=== PATIENT | female | born 1965 | race Caucasian/White ===

== ENCOUNTER 2016-10-25 18:05 | Emergency (ER) | payer OTHER ==
[~2016-10-25 18:05] MED LIST: CYCL10TA PO; LINZ290C PO; OMEP40CA2 PO; SUCR1TA PO
[2016-10-25] MEDS ORDERED: AZITHROMYCIN 250 MG TAB As Ordered ONE (21:36)
--- NOTE | 2016-10-25 21:47 | EDDOCDS ---
Physician Documentation [facility] Name: Cally Valiente Age: 50 yrs Sex: Female : 1965 Arrival Date: 10/25/2016 Time: 18:05 Bed I9 / 22 Private MD: Ryland Ivey M Disposition: 10/25/16 21:36 Discharged to Home/Self Care. Impression: Acute upper respiratory infection, unspecified. - Condition is Stable. - Discharge Instructions: Upper Respiratory Infection, Adult. - Prescriptions for Zithromax 250 mg Oral Tablet - take 1 tablet by ORAL route once daily start tomorrow; 4 tablet. benzonatate 200 mg Oral Capsule - take 1 capsule by ORAL route 3 times per day As needed; 30 capsule. - Medication Reconciliation, Local Pharmacy Hours form. - Follow up: Ryland Ivey; When: Call to arrange an appointment; Reason: Recheck today's complaints, Continuance of care. - Problem is an ongoing problem. - Symptoms are unchanged. - Notes: Use Ibuprofen and Tylenol, as needed, for pain or fever >101.5 Keep hydrated Continue to use OTC cold meds to help with symptom control Return to the ED for worsening symptoms Historical: - Allergies: No known drug Allergies; - Home Meds: 1. Linzess 290 mcg oral cap 2. omprezole 20 mg - PMHx: ulcers; - PSHx: lung biopsy; Bladder suspension; - Social history: Smoking status: Patient uses tobacco products, light tobacco smoker. No barriers to communication noted, The patient speaks fluent Swedish, Speaks appropriately for age. - Family history: No immediate family members are acutely ill. - : The pt / caregiver states he / she is not on anticoagulants. Home medication list is obtained from the patient. - Exposure Risk Screening:: None identified. Vital Signs: 10/25 18:06 BP 136 / 83; Pulse 101; Resp 18; Temp 96.9(O); Pulse Ox 96% on R/A; Weight 79.38 kg / elp 175 lbs (R); Height 5 ft. 5 in. (165.10 cm) (R); 21:25 BP 140 / 63; Pulse 95; Resp 18; Pulse Ox 96% ; Pain 0/10; mlc 18:06 Body Mass Index 29.12 (79.38 kg, 165.10 cm) elp MDM: 20:52 Chest, 2 View (pa\E\lat) Ordered. EDMS 21:28 Financial registration complete. [email or web address] 21:29 [facility] Payment Agreement was scanned into [employer] and attached to record. ks16 21:31 azithromycin 500 mg PO once ordered. le Administered Medications: 21:39 Drug: azithromycin 500 mg [azithromycin 250 mg tablet (2 tabs)] Route: PO; mlc Signatures: Dispatcher [employer] EDMS Patrizia Anderson FNP PLANT OPERATIONS WORKERCecile Ashton RN RN hs1 Jazmín Hair RN RN mlc Michelle Grullon, Reg Reg ks16 The chart was reviewed and I authenticate all verbal orders and agree with the evaluation and treatment provided.Attachments: 21:29 [facility] Payment Agreement ks16 MTDD
--- NOTE | 2016-10-25 21:47 | EDDOCDS ---
Nurse's Notes [facility] Name: Cally Valiente Age: 50 yrs Sex: Female : 1965 Arrival Date: 10/25/2016 Time: 18:05 Bed I9 / 22 Private MD: Ryland Ivey M Diagnosis: Acute upper respiratory infection, unspecified Presentation: 10/25 18:23 Presenting complaint: Patient states: cough sinuses for 3 weeks. Patient states Sanjuana had hs1 all I cant take. Adult Sepsis Screening: The patient does not have new or worsening altered mentation. Patient's respiratory rate is less than 22. Systolic blood pressure is greater than 100. Patient has a qSOFA score of 0- Negative Sepsis Screen. Suicide/Homicide risk assessment- the patient denies having any suicidal and/or homicidal ideations and does not present with any other emotional, behavioral or mental health complaints. Status: Patient is not a tire servicer or dependent. Transition of care: patient was not received from another setting of care. 18:23 Acuity: LEN Level 4 hs1 18:23 Method Of Arrival: Walkin/Carried/Asstd hs1 Triage Assessment: 18:25 General: Appears in no apparent distress, Behavior is appropriate for age, cooperative. hs1 Pain: Location: chest Pain currently is 6 out of 10 on a pain scale. Quality of pain is described as only when coughing. HIV screening NA for this visit Offered previously. Historical: - Allergies: No known drug Allergies; - Home Meds: 1. Linzess 290 mcg oral cap 2. omprezole 20 mg - PMHx: ulcers; - PSHx: lung biopsy; Bladder suspension; - Social history: Smoking status: Patient uses tobacco products, light tobacco smoker. No barriers to communication noted, The patient speaks fluent Rwandan, Speaks appropriately for age. - Family history: No immediate family members are acutely ill. - : The pt / caregiver states he / she is not on anticoagulants. Home medication list is obtained from the patient. - Exposure Risk Screening:: None identified. Screenin:25 Screening information is obtained from the patient. Fall risk: No risks identified. mlc Assistance ADL's: requires no assistance with activities of daily living. Abuse/DV Screen: The patient / caregiver reports he/she is: not in a situation that causes fear, pain or injury. Nutritional screening: No deficits noted. Advance Directives: There is no active DNR order. home support is adequate. Assessment: 21:25 General: Appears in no apparent distress, comfortable, Behavior is cooperative. Pain: mlc Denies pain. Neurological: Level of Consciousness is awake, alert, obeys commands, Oriented to person, place, time. Cardiovascular: Heart tones S1 S2 present. Respiratory: Airway is patent Respiratory effort is even, unlabored, Respiratory pattern is regular, Breath sounds are clear bilaterally. Respiratory: Reports cough that is productive. Derm: Skin is pink, warm & dry. 21:39 Reassessment: Patient appears in no apparent distress at this time. [place] [facility] [place]. 21:45 General: Appears in no apparent distress, comfortable, Behavior is cooperative. Pain: mlc Denies pain. Neurological: Level of Consciousness is awake, alert, Oriented to person, place, time. Respiratory: Airway is patent Respiratory effort is even, unlabored, Respiratory pattern is regular. Vital Signs: 18:06 BP 136 / 83; Pulse 101; Resp 18; Temp 96.9(O); Pulse Ox 96% on R/A; Weight 79.38 kg elp (R); Height 5 ft. 5 in. (165.10 cm) (R); 21:25 BP 140 / 63; Pulse 95; Resp 18; Pulse Ox 96% ; Pain 0/10; mlc 18:06 Body Mass Index 29.12 (79.38 kg, 165.10 cm) el Vitals: 18:06 Log In Time: October 25, 2016 at 18:04. elp ED Course: 18:05 Patient visited by Imani Alonso PCA. elp 18:05 Patient moved to Waiting elp 18:06 Ryland Ivey is Private Physician. elp 18:08 Patient moved to Pre RCE elp 18:24 Triage Initiated hs1 20:50 Patient moved to I9 / ttb 21:06 Patrizia Anderson FNP is [facility]. le 21:09 Patient visited by Patrizia Anderson FNP. le 21:09 Patient visited by Patrizia Anderson FNP. le 21:25 The patient / caregiver is instructed regarding the plan of care and ED course. mlc 21:26 Patient visited by Jazmín Hair RN. mlc 21:29 [facility] Payment Agreement was scanned into [employer] and attached to record. ks16 21:36 Ryland Ivey is Referral Physician. le 21:39 Patient visited by Jazmín Hair,VASQUEZ. mlc 21:45 No IV's were initiated during this patient's visit. No procedures done that require mlc assistance. Administered Medications: 21:39 Drug: azithromycin 500 mg [azithromycin 250 mg tablet (2 tabs)] Route: PO; mlc Order Results: There are currently no results for this order. Outcome: 21:36 Discharge ordered by Provider. le 21:45 Discharge Assessment: Patient awake, alert and oriented x 3. No cognitive and/or mlc functional deficits noted. Patient verbalized understanding of disposition instructions. patient administered narcotics - no. The following High Risk Discharge criteria are identified: None. Discharged to home ambulatory. Condition: stable. Discharge instructions given to patient, Instructed on discharge instructions, follow up and referral plans. medication usage, Demonstrated understanding of instructions, medications, Pt was receptive of discharge instructions/ teaching. Prescriptions given X 2. No special radiology studies were completed. Property sent home with patient. 21:46 [place] [facility] [place] Signatures: Patrizia Anderson, BURGLAR ALARM SUPERINTENDENT BURGLAR ALARM SUPERINTENDENT Cecile Houser RN RN hs1 Chen Krueger RN RN ttb Imani Alonso, MANAGING CONSULTANT MANAGING CONSULTANT elp Jazmín Hair RN RN [facility] Michelle Grullon, Reg Reg [email or web address] Corrections: (The following items were deleted from the chart) 18:08 18:06 Pulse 101bpm; Resp 18bpm; Pulse Ox 96% RA; Temp 96.9F Oral; 79.38 kg Reported; elp Height 5 ft. 5 in. Reported; BMI: 29.1; elp MTDD
--- NOTE | 2016-10-26 02:38 | REP ---
Clinical: Acute cough . Comparison: 06/12/2009 . Technique: PA and lateral. Findings: The mediastinum and cardiac silhouette are normal. The lung foster are clear and without acute consolidation, effusion, or pneumothorax. The skeletal structures are intact and normal. Impression: 1. No acute cardiopulmonary process. Signed by Ralph Walton MD 10/26/2016 02:29 A
--- NOTE | 2016-10-27 22:48 | EDDOCDS ---
Nurse's Notes [facility] Name: Cally Valiente Age: 50 yrs Sex: Female : 1965 Arrival Date: 10/25/2016 Time: 18:05 Bed I9 / 22 Private MD: Ryland Ivey M Diagnosis: Acute upper respiratory infection, unspecified Presentation: 10/25 18:23 Presenting complaint: Patient states: cough sinuses for 3 weeks. Patient states Sanjuana had hs1 all I cant take. Adult Sepsis Screening: The patient does not have new or worsening altered mentation. Patient's respiratory rate is less than 22. Systolic blood pressure is greater than 100. Patient has a qSOFA score of 0- Negative Sepsis Screen. Suicide/Homicide risk assessment- the patient denies having any suicidal and/or homicidal ideations and does not present with any other emotional, behavioral or mental health complaints. Status: Patient is not a it service technician or dependent. Transition of care: patient was not received from another setting of care. 18:23 Acuity: LEN Level 4 hs1 18:23 Method Of Arrival: Walkin/Carried/Asstd hs1 Triage Assessment: 18:25 General: Appears in no apparent distress, Behavior is appropriate for age, cooperative. hs1 Pain: Location: chest Pain currently is 6 out of 10 on a pain scale. Quality of pain is described as only when coughing. HIV screening NA for this visit Offered previously. Historical: - Allergies: No known drug Allergies; - Home Meds: 1. Linzess 290 mcg oral cap 2. omprezole 20 mg - PMHx: ulcers; - PSHx: lung biopsy; Bladder suspension; - Social history: Smoking status: Patient uses tobacco products, light tobacco smoker. No barriers to communication noted, The patient speaks fluent [place]inean, Speaks appropriately for age. - Family history: No immediate family members are acutely ill. - : The pt / caregiver states he / she is not on anticoagulants. Home medication list is obtained from the patient. - Exposure Risk Screening:: None identified. Screenin:25 Screening information is obtained from the patient. Fall risk: No risks identified. mlc Assistance ADL's: requires no assistance with activities of daily living. Abuse/DV Screen: The patient / caregiver reports he/she is: not in a situation that causes fear, pain or injury. Nutritional screening: No deficits noted. Advance Directives: There is no active DNR order. home support is adequate. Assessment: 21:25 General: Appears in no apparent distress, comfortable, Behavior is cooperative. Pain: mlc Denies pain. Neurological: Level of Consciousness is awake, alert, obeys commands, Oriented to person, place, time. Cardiovascular: Heart tones S1 S2 present. Respiratory: Airway is patent Respiratory effort is even, unlabored, Respiratory pattern is regular, Breath sounds are clear bilaterally. Respiratory: Reports cough that is productive. Derm: Skin is pink, warm & dry. 21:39 Reassessment: Patient appears in no apparent distress at this time. pt medicated per [facility] order. 21:45 General: Appears in no apparent distress, comfortable, Behavior is cooperative. Pain: mlc Denies pain. Neurological: Level of Consciousness is awake, alert, Oriented to person, place, time. Respiratory: Airway is patent Respiratory effort is even, unlabored, Respiratory pattern is regular. Vital Signs: 18:06 BP 136 / 83; Pulse 101; Resp 18; Temp 96.9(O); Pulse Ox 96% on R/A; Weight 79.38 kg elp (R); Height 5 ft. 5 in. (165.10 cm) (R); 21:25 BP 140 / 63; Pulse 95; Resp 18; Pulse Ox 96% ; Pain 0/10; mlc 18:06 Body Mass Index 29.12 (79.38 kg, 165.10 cm) el Vitals: 18:06 Log In Time: October 25, 2016 at 18:04. elp ED Course: 18:05 Patient visited by Imani Alonso PCA. elp 18:05 Patient moved to Waiting elp 18:06 Ryland Ivey is Private Physician. elp 18:08 Patient moved to Pre RCE elp 18:24 Triage Initiated hs1 20:50 Patient moved to I9 / ttb 21:06 Patrizia Anderson FNP is [facility]. le 21:09 Patient visited by Patrizia Anderson FNP. le 21:09 Patient visited by Patrizia Anderson FNP. le 21:25 The patient / caregiver is instructed regarding the plan of care and ED course. mlc 21:26 Patient visited by Jazmín Hair RN. [facility] 21:29 [facility] Payment Agreement was scanned into [employer] and attached to record. [email or web address] 21:36 Ryland Ivey is Referral Physician. le 21:39 Patient visited by Jazmín Hair RN. mlc 21:45 No IV's were initiated during this patient's visit. No procedures done that require mlc assistance. 10/26 02:39 Chest, 2 View (pa\E\lat) Returned. EDAK 09:42 T-Sheet-- Draft Copy was scanned into [employer] and attached to record. gb Administered Medications: 10/25 21:39 Drug: azithromycin 500 mg [azithromycin 250 mg tablet (2 tabs)] Route: PO; mlc Order Results: Radiology Order: Chest, 2 View (pa\E\lat) Test: Chest, 2 View (pa\E\lat) REASON FOR EXAMINATION: Cough; Clinical: Acute cough .; ; Comparison: 06/12/2009 .; ; Technique: PA and lateral.; ; Findings:; The mediastinum and cardiac silhouette are normal. The lung foster are clear and; without acute consolidation, effusion, or pneumothorax. The skeletal structures; are intact and normal.; ; Impression:; 1. No acute cardiopulmonary process.; ; ; Signed by; Ralph Walton MD 10/26/2016 02:29 A; Outcome: 21:36 Discharge ordered by Provider. le 21:45 Discharge Assessment: Patient awake, alert and oriented x 3. No cognitive and/or mlc functional deficits noted. Patient verbalized understanding of disposition instructions. patient administered narcotics - no. The following High Risk Discharge criteria are identified: None. Discharged to home ambulatory. Condition: stable. Discharge instructions given to patient, Instructed on discharge instructions, follow up and referral plans. medication usage, Demonstrated understanding of instructions, medications, Pt was receptive of discharge instructions/ teaching. Prescriptions given X 2. No special radiology studies were completed. Property sent home with patient. 21:46 Patient left the ED. [facility] Signatures: Dispatcher [employer] EDAK Yun Sebastian, Reg Reg gb Patrizia Anderson, TSA SCREENER TSA SCREENER Cecile Houser RN RN hs1 Chen Krueger RN RN ttb Gavin, Imani, EARRING MAKER EARRING MAKER elp Jazmín Hair,VASQUEZ OVALLE [facility] Michelle Grullon, Reg Reg ks16 Corrections: (The following items were deleted from the chart) 18:08 18:06 Pulse 101bpm; Resp 18bpm; Pulse Ox 96% RA; Temp 96.9F Oral; 79.38 kg Reported; elp Height 5 ft. 5 in. Reported; BMI: 29.1; elp Chart Complete MTDD
--- NOTE | 2016-10-27 22:48 | EDDOCDS ---
Physician Documentation [facility] Name: Cally Valiente Age: 50 yrs Sex: Female : 1965 Arrival Date: 10/25/2016 Time: 18:05 Bed I9 / 22 Private MD: Ryland Ivey M Disposition: 10/25/16 21:36 Discharged to Home/Self Care. Impression: Acute upper respiratory infection, unspecified. - Condition is Stable. - Discharge Instructions: Upper Respiratory Infection, Adult. - Prescriptions for Zithromax 250 mg Oral Tablet - take 1 tablet by ORAL route once daily start tomorrow; 4 tablet. benzonatate 200 mg Oral Capsule - take 1 capsule by ORAL route 3 times per day As needed; 30 capsule. - Medication Reconciliation, Local Pharmacy Hours form. - Follow up: Ryland Ivey; When: Call to arrange an appointment; Reason: Recheck today's complaints, Continuance of care. - Problem is an ongoing problem. - Symptoms are unchanged. - Notes: Use Ibuprofen and Tylenol, as needed, for pain or fever >101.5 Keep hydrated Continue to use OTC cold meds to help with symptom control Return to the ED for worsening symptoms Historical: - Allergies: No known drug Allergies; - Home Meds: 1. Linzess 290 mcg oral cap 2. omprezole 20 mg - PMHx: ulcers; - PSHx: lung biopsy; Bladder suspension; - Social history: Smoking status: Patient uses tobacco products, light tobacco smoker. No barriers to communication noted, The patient speaks fluent Slovak, Speaks appropriately for age. - Family history: No immediate family members are acutely ill. - : The pt / caregiver states he / she is not on anticoagulants. Home medication list is obtained from the patient. - Exposure Risk Screening:: None identified. Vital Signs: 10/25 18:06 BP 136 / 83; Pulse 101; Resp 18; Temp 96.9(O); Pulse Ox 96% on R/A; Weight 79.38 kg / elp 175 lbs (R); Height 5 ft. 5 in. (165.10 cm) (R); 21:25 BP 140 / 63; Pulse 95; Resp 18; Pulse Ox 96% ; Pain 0/10; mlc 18:06 Body Mass Index 29.12 (79.38 kg, 165.10 cm) elp MDM: 20:52 Chest, 2 View (pa\E\lat) Ordered. EDMS 21:28 Financial registration complete. [email or web address] 21:29 [facility] Payment Agreement was scanned into [employer] and attached to record. ks16 21:31 azithromycin 500 mg PO once ordered. aleah 10/26 09:42 T-Sheet-- Draft Copy was scanned into [employer] and attached to record. gb Administered Medications: 10/25 21:39 Drug: azithromycin 500 mg [azithromycin 250 mg tablet (2 tabs)] Route: PO; mlc Signatures: Dispatcher [employer] EDMS Yun Sebastian, Reg Reg gb Patrizia Anderson, PACKING AND SHIPPING CLERK PACKING AND SHIPPING CLERK Cecile Houser RN RN hs1 Jazmín Hair RN RN [facility] Michelle Grullon, Reg Reg ks16 The chart was reviewed and I authenticate all verbal orders and agree with the evaluation and treatment provided.Attachments: 21:29 [facility] Payment Agreement [email or web address] 10/26 09:42 T-Sheet-- Draft Copy gb Chart Complete MTDD
--- NOTE | 2016-10-27 22:48 | EDDOCDS ---
Physician Documentation [facility] Name: Cally Valiente Age: 50 yrs Sex: Female : 1965 Arrival Date: 10/25/2016 Time: 18:05 Bed I9 / 22 Private MD: Ryland Ivey M Disposition: 10/25/16 21:36 Discharged to Home/Self Care. Impression: Acute upper respiratory infection, unspecified. - Condition is Stable. - Discharge Instructions: Upper Respiratory Infection, Adult. - Prescriptions for Zithromax 250 mg Oral Tablet - take 1 tablet by ORAL route once daily start tomorrow; 4 tablet. benzonatate 200 mg Oral Capsule - take 1 capsule by ORAL route 3 times per day As needed; 30 capsule. - Medication Reconciliation, Local Pharmacy Hours form. - Follow up: Ryland Ivey; When: Call to arrange an appointment; Reason: Recheck today's complaints, Continuance of care. - Problem is an ongoing problem. - Symptoms are unchanged. - Notes: Use Ibuprofen and Tylenol, as needed, for pain or fever >101.5 Keep hydrated Continue to use OTC cold meds to help with symptom control Return to the ED for worsening symptoms Historical: - Allergies: No known drug Allergies; - Home Meds: 1. Linzess 290 mcg oral cap 2. omprezole 20 mg - PMHx: ulcers; - PSHx: lung biopsy; Bladder suspension; - Social history: Smoking status: Patient uses tobacco products, light tobacco smoker. No barriers to communication noted, The patient speaks fluent Yi, Speaks appropriately for age. - Family history: No immediate family members are acutely ill. - : The pt / caregiver states he / she is not on anticoagulants. Home medication list is obtained from the patient. - Exposure Risk Screening:: None identified. Vital Signs: 10/25 18:06 BP 136 / 83; Pulse 101; Resp 18; Temp 96.9(O); Pulse Ox 96% on R/A; Weight 79.38 kg / elp 175 lbs (R); Height 5 ft. 5 in. (165.10 cm) (R); 21:25 BP 140 / 63; Pulse 95; Resp 18; Pulse Ox 96% ; Pain 0/10; mlc 18:06 Body Mass Index 29.12 (79.38 kg, 165.10 cm) elp MDM: 20:52 Chest, 2 View (pa\E\lat) Ordered. EDMS 21:28 Financial registration complete. [email or web address] 21:29 [facility] Payment Agreement was scanned into [employer] and attached to record. ks16 21:31 azithromycin 500 mg PO once ordered. aleah 10/26 09:42 T-Sheet-- Draft Copy was scanned into [employer] and attached to record. gb Administered Medications: 10/25 21:39 Drug: azithromycin 500 mg [azithromycin 250 mg tablet (2 tabs)] Route: PO; mlc Signatures: Dispatcher [employer] EDMS Yun Sebastian, Reg Reg gb Patrizia Anderson, STATIONARY ENGINEER APPRENTICE STATIONARY ENGINEER APPRENTICE Cecile Houser RN RN hs1 Jazmín Hair RN RN [facility] Michelle Grullon, Reg Reg ks16 The chart was reviewed and I authenticate all verbal orders and agree with the evaluation and treatment provided.Attachments: 21:29 [facility] Payment Agreement [email or web address] 10/26 09:42 T-Sheet-- Draft Copy gb Chart Complete MTDD
== END 2016-10-25 21:46 | disposition home or self-care (01) ==
LOC: M ED 18:05
DX: J06.9 Acute upper respiratory infection, unspecified (principal); F17.210 Nicotine dependence, cigarettes, uncomplicated; Z79.899 Other long term (current) drug therapy

== ENCOUNTER 2016-11-20 14:48 | Emergency (ER) | payer OTHER ==
[~2016-11-20] VITALS: Ht 165.1 cm; Wt 81.6 kg
[2016-11-20 17:02] VITALS: BP 124/78
[2016-11-20] MEDS ORDERED: FLUTICASONE PROP 0.05% NASAL SPRAY 16 GM (FLONASE) SCH (21:00)
== END 2016-11-20 17:06 | disposition home or self-care (01) ==
LOC: M ED 16:20
DX: J32.9 Chronic sinusitis, unspecified (principal); Z79.899 Other long term (current) drug therapy; F17.210 Nicotine dependence, cigarettes, uncomplicated

== ENCOUNTER → 2017-01-18 | Outpatient (REF) | payer OTHER ==
[2017-01-18 11:11] LABS: FREE T4 0.88 NG/DL (0.76-1.46)
== END ==
LOC: M LABDRAW1 10:35
PROVIDERS: ATTEND Physician Assistant Medical
DX: M62.838 Other muscle spasm (principal)

== ENCOUNTER → 2017-01-30 | Outpatient (CLI) | payer OTHER ==
--- NOTE | 2017-01-30 10:24 | REP ---
CT maxillofacial without contrast: 01/30/2017. Clinical history: Chronic pansinusitis. Axial thin-section images with soft tissue and bone window settings and coronal reconstructions were provided. Visualized mastoids and temporal bones grossly intact. The skull base intact. Zygomatic arches, orbital struts, medial orbital sanchez and the orbital floors intact. Septum is midline. Some minor mucosal thickening in the anterior sanchez of the right and left sphenoid sinuses. Frontal sinuses were clear. Maxillary sinuses show some stenosis of the ostium of the OMC on the right with minor mucosal thickening at the ostium of the left OMC. There is minimal mucosal thickening floor of the right maxillary antrum. The left OMC shows no ostial and/or infundibular stenosis. Hiatus semilunaris intact on both sides. No indio bullosa of the middle turbinates. No air-fluid levels. Impression: 1. Minor mucosal thickening anterior sphenoid sinuses and at the ostium of the OMC on the right. The there is no mucosal thickening of floor of the right maxillary antrum. Sphenoid, maxillary, ethmoid and frontal sinuses are without air fluid levels or opacification. No septal deviation. Signed by Jon Bhatia MD 01/30/2017 01:30 P
== END ==
LOC: M RAD 09:05
PROVIDERS: ATTEND Otolaryngology
DX: J32.4 Chronic pansinusitis (principal)

== ENCOUNTER → 2017-02-16 | Outpatient (REF) | payer OTHER ==
[2017-02-16 13:25] LABS: FREE T4 0.98 NG/DL (0.76-1.46)
== END ==
LOC: M SFHCPLAZ 09:40
PROVIDERS: ATTEND Physician Assistant Medical
DX: R53.83 Other fatigue (principal)

== ENCOUNTER → 2017-03-17 | Outpatient (CLI) | payer OTHER ==
[~2017-03-17] MED LIST changes: +AUGM875T28 PO; +FLUT1SPR2; +IBUP-1022 PO; +METH1TAB40; +OMEP40CA2; +SUCR1TAB56; +ZYRT10TA2 PO
--- NOTE | 2017-03-17 16:21 | REP ---
Clinical: Left lower extremity pain status post ablation. Technique: Jimenez scale and color Doppler evaluation using linear high frequency transducer. Findings: Ultrasound examination of the left lower extremity deep venous structures from the common femoral vein to the popliteal vein demonstrates normal compressibility flow and wave patterns in response to respiration and augmentation. There is no evidence for deep venous thrombosis. Thrombus through the greater saphenous vein is consistent with prior ablation. Impression: No evidence for deep venous thrombosis. Signed by Ralph Walton MD 03/17/2017 11:06 A
== END ==
LOC: M RAD 10:25
PROVIDERS: ATTEND Surgery
DX: I83.812 Varicose veins of left lower extremity with pain (principal)

== ENCOUNTER 2017-06-05 07:03 | Emergency (ER) | payer OTHER ==
[~2017-06-05] VITALS: Ht 165.1 cm; Wt 86.4 kg
[~2017-06-05 07:03] MED LIST changes: -AUGM875T28 PO; -FLUT1SPR2; -IBUP-1022 PO; -METH1TAB40; -OMEP40CA2; -SUCR1TAB56; -ZYRT10TA2 PO
[2017-06-05] MEDS ORDERED: OMEP40CA2 (07:17)
[2017-06-05] MEDS ORDERED: METH1TAB40 (07:17)
[2017-06-05] MEDS ORDERED: SUCR1TAB56 (07:17)
[2017-06-05] MEDS ORDERED: FLUT1SPR2 (07:17)
[2017-06-05 07:21] VITALS: BP 128/91
[2017-06-05] MEDS ORDERED: ZYRT10TA2 PO (07:51)
[2017-06-05] MEDS ORDERED: AUGM875T28 PO (07:51)
== END 2017-06-05 07:59 | disposition home or self-care (01) ==
LOC: M ED 07:03
DX: J31.0 Chronic rhinitis (principal); R51 Headache; K21.9 Gastro-esophageal reflux disease without esophagitis; Z79.899 Other long term (current) drug therapy; F17.210 Nicotine dependence, cigarettes, uncomplicated

== ENCOUNTER 2017-06-13 20:44 | Emergency (ER) | payer OTHER ==
[~2017-06-13] VITALS: Ht 165.1 cm; Wt 77.3 kg
[~2017-06-13 20:44] MED LIST changes: +AUGM875T28 PO; +FLUT1SPR2; +METH1TAB40; +OMEP40CA2; +SUCR1TAB56; +ZYRT10TA2 PO
[2017-06-13] MEDS ORDERED: IBUP-1022 PO (23:18)
[2017-06-13 23:32] VITALS: BP 114/75
--- NOTE | 2017-06-14 00:39 | REP ---
Clinical: Trauma. Fall. Technique: AP, lateral, sunrise and bilateral oblique views of right knee. Findings: Anterior and prepatellar soft tissue swelling is appreciated. Small effusion cannot be excluded. No acute fracture or dislocation. [place] view demonstrates marginal osteophytes along the patella suggesting mild degenerative change. Impression: Swelling. No fracture. Mild degenerative change. Signed by Ralph Walton MD 06/14/2017 12:30 A
== END 2017-06-13 23:34 | disposition home or self-care (01) ==
LOC: M ED 20:44
DX: S80.01XA Contusion of right knee, initial encounter (principal); W01.198A Fall on same level from slipping, tripping and stumbling with subsequent striking against other object, initial encounter; Y92.019 Unspecified place in single-family (private) house as the place of occurrence of the external cause; Y93.01 Activity, walking, marching and hiking; Y99.8 Other external cause status; F17.210 Nicotine dependence, cigarettes, uncomplicated; Z79.2 Long term (current) use of antibiotics; Z79.899 Other long term (current) drug therapy; Z79.51 Long term (current) use of inhaled steroids

== ENCOUNTER 2018-08-20 21:46 | Emergency (ER) | payer OTHER ==
[2018-08-21] MEDS: CYCLOBENZAPRINE 10 MG TAB PO (00:25)
[2018-08-21] MEDS: ACETAMINOPHEN 325 MG TAB PO (00:25)
== END 2018-08-21 00:28 | disposition home or self-care (01) ==
LOC: M ED 08-21 00:28
DX: S70.02XA Contusion of left hip, initial encounter (principal); S76.012A Strain of muscle, fascia and tendon of left hip, initial encounter; W01.0XXA Fall on same level from slipping, tripping and stumbling without subsequent striking against object, initial encounter; Y92.89 Other specified places as the place of occurrence of the external cause; Y99.0 Civilian activity done for income or pay; K21.9 Gastro-esophageal reflux disease without esophagitis; Z79.899 Other long term (current) drug therapy
CPT/HCPCS: 73502

== ENCOUNTER → 2018-11-30 | Outpatient (REF) | payer OTHER ==
[~2018-11-30] MED LIST changes: +CELE1CAP9; +IBUP-1022 PO; +ZYRT10CA5 PO; -ZYRT10TA2 PO
[2018-11-30 13:49] LABS: HEMATOCRIT 44.7 % (36.0-47.0); HEMOGLOBIN 14.6 g/dl (12.0-15.5); MEAN CORPUSCULAR HEMOGLOBIN 29.6 pg (27.0-33.0); MEAN CORPUSCULAR HGB CONC 32.7 g/dl (32.0-36.5); MEAN CORPUSCULAR VOLUME 90.5 fl (80.0-96.0); PLATELET COUNT, AUTOMATED 197 10^3/uL (150-450); RED BLOOD COUNT 4.94 10^6/uL (4.00-5.40)
== END ==
LOC: M LABDRAW1 13:14
PROVIDERS: ATTEND Physician Assistant Medical
DX: R10.13 Epigastric pain (principal)

== ENCOUNTER 2018-12-20 10:26 | Day surgery (SDC) | payer OTHER ==
[~2018-12-20] VITALS: Ht 165.1 cm; Wt 93.2 kg
[~2018-12-20 10:26] MED LIST changes: +CARA1TAB6 PO; +LIDOCAINE 2% INJ 100 MG/5 ML SDV (FOR ANES.) As Ordered ONE
[2018-12-20] MEDS ORDERED: PROPOFOL 200 MG/20 ML VIAL As Ordered ONE (11:56)
[2018-12-20] MEDS: NS 1,000 ML IV ONE (11:57)
[2018-12-20] MEDS ORDERED: fentaNYL 100 MCG/2 ML INJECTION (J3010) As Ordered ONE (12:31)
--- NOTE | 2018-12-20 13:07 | ROOR ---
Patient Name: Cally Valiente Procedure Date: 12/20/2018 12:51 PM Date of : 1965 Age: 53 Room: [facility] Gender: Female Note Status: Finalized Procedure: Upper GI endoscopy Indications: Epigastric abdominal pain Providers: Benji DE LA CRUZ MD Referring MD: Andree Reyes NP Requesting Provider: Medicines: Monitored Anesthesia Care Complications: No immediate complications. Procedure: Pre-Anesthesia Assessment: - The heart rate, respiratory rate, oxygen saturations, blood pressure, adequacy of pulmonary ventilation, and response to care were monitored throughout the procedure. The Endoscope was introduced through the mouth, and advanced to the second part of duodenum. The upper GI endoscopy was accomplished without difficulty. The patient tolerated the procedure well. Findings: The examined esophagus was normal. Localized nodular mucosa was found in the gastric antrum. Biopsies were taken with a cold forceps for histology. The exam of the stomach was otherwise normal. (large volume) The examined duodenum was normal. Impression: - Normal esophagus. - Small nodular spot at site of previous ulcer. Suspect small scar/fibrotic tissue. There is no recurrence of ulcer- Biopsied. - Stomach is otherwise normal. - Normal examined duodenum. Recommendation: - Continue present medications. - Telephone endoscopist for pathology results in 2 weeks. - Observe patient's clinical course. Benji De La Cruz MD Benji DE LA CRUZ MD 12/20/2018 1:07:06 PM Electronically signed by Benji DE LA CRUZ MD Number of Addenda: 0 Note Initiated On: 12/20/2018 12:51 PM Estimated Blood Loss: Estimated blood loss: none.
--- NOTE | 2018-12-20 13:33 | ROOR ---
Patient Name: Cally Valiente Procedure Date: 12/20/2018 12:51 PM Date of : 1965 Age: 53 Room: [facility] Gender: Female Note Status: Finalized Procedure: Colonoscopy Indications: High risk colon cancer surveillance: Personal history of colonic polyps, Last colonoscopy: July 2015 Providers: Benji DE LA CRUZ MD Referring MD: Andree Reyes NP Requesting Provider: Medicines: Monitored Anesthesia Care Complications: No immediate complications. Procedure: Pre-Anesthesia Assessment: - The heart rate, respiratory rate, oxygen saturations, blood pressure, adequacy of pulmonary ventilation, and response to care were monitored throughout the procedure. The Colonoscope was introduced through the anus and advanced to the cecum, identified by appendiceal orifice and ileocecal valve. The colonoscopy was performed with difficulty due to unsatisfactory bowel prep. Successful completion of the procedure was aided by lavage. The patient tolerated the procedure well. The quality of the bowel preparation was fair and 20 percent obscured. Findings: The perianal and digital rectal examinations were normal. Three sessile polyps were found in the descending colon and splenic flexure. The polyps were 4 to 5 mm in size. These polyps were removed with a cold snare. Resection and retrieval were complete. The exam was otherwise without abnormality on direct and retroflexion views. Impression: - Preparation of the colon was fair. - Three 4 to 5 mm polyps in the descending colon and at the splenic flexure, removed with a cold snare. Resected and retrieved. - The examination was otherwise normal on direct and retroflexion views. Recommendation: - Repeat colonoscopy in 2 years because the bowel preparation was suboptimal. - You had MOM/Suprep colon prep. You will need additional colon prep for your next colonoscopy. Benji De La Cruz MD Benji DE LA CRUZ MD 12/20/2018 1:33:36 PM Electronically signed by Benji DE LA CRUZ MD Number of Addenda: 0 Note Initiated On: 12/20/2018 12:51 PM Estimated Blood Loss: Estimated blood loss: none.
[2018-12-20 13:50] VITALS: BP 128/91
[2018-12-21] MEDS ORDERED: KETO10TAB PO (22:18)
[2018-12-21] MEDS ORDERED: CYCL10TA PO (22:18)
== END 2018-12-20 14:03 | disposition home or self-care (01) ==
LOC: M OPP 10:26
PROVIDERS: ATTEND Internal Medicine Gastroenterology
DX: D12.3 Benign neoplasm of transverse colon (principal); D12.4 Benign neoplasm of descending colon; Z86.010 Personal history of colon polyps; R10.13 Epigastric pain; K29.60 Other gastritis without bleeding
CPT/HCPCS: 43239; 45385; 88305; J3010

== ENCOUNTER 2018-12-21 20:51 | Emergency (ER) | payer OTHER ==
[~2018-12-21] VITALS: Ht 165.1 cm; Wt 82.7 kg
[~2018-12-21 20:51] MED LIST changes: -LIDOCAINE 2% INJ 100 MG/5 ML SDV (FOR ANES.) As Ordered ONE
[2018-12-21] MEDS ORDERED: KETOROLAC 60 MG/2 ML VIAL (J1885) IM ONE (21:45)
[2018-12-21] MEDS ORDERED: KETO10TAB PO (22:18)
[2018-12-21] MEDS ORDERED: CYCL10TA PO (22:18)
--- NOTE | 2018-12-21 22:23 | REP ---
Clinical: Abdominal pain with recent procedure. Technique: Upright view of the abdomen to include in the lower chest with supine view of the abdomen and pelvis. Findings: Mild/moderate fecal stasis is suggested. There is no evidence for bowel obstruction or perforation. Mild hepatomegaly cannot be excluded. Skeletal structures are intact. Impression: Mild/moderate fecal stasis. No evidence for bowel obstruction or perforation. Electronically Signed by Ralph Walton MD 12/21/2018 10:14 P
[2018-12-21 22:25] VITALS: BP 133/93
== END 2018-12-21 22:26 | disposition home or self-care (01) ==
LOC: M ED 20:51
DX: S46.912A Strain of unspecified muscle, fascia and tendon at shoulder and upper arm level, left arm, initial encounter (principal)
CPT/HCPCS: 74019; 96372; 99283; J1885

== ENCOUNTER → 2019-09-28 | Outpatient (REF) | payer OTHER ==
[~2019-09-28] MED LIST changes: +KETO10TAB PO; -OMEP40CA2; -OMEP40CA2 PO; +OMEP40CA97; +OMEP40CA97 PO
== END ==
LOC: M LAB REF 17:42
PROVIDERS: ATTEND Physician Assistant
DX: R30.0 Dysuria (principal)

== ENCOUNTER → 2020-07-06 | Outpatient (REF) | payer OTHER ==
[~2020-07-06] MED LIST changes: +CYCL-707 PO; -CYCL10TA PO
== END ==
LOC: M LAB REF 12:51
PROVIDERS: ATTEND Nurse Practitioner Adult Health
DX: I10 Essential (primary) hypertension (principal); R35.0 Frequency of micturition; R35.1 Nocturia

== ENCOUNTER → 2020-10-02 | Outpatient (CLI) | payer SELFPAY | LOC: M LABSMTC 11:49 | PROVIDERS: ATTEND Pediatrics | DX: Z20.822 Contact with and (suspected) exposure to COVID-19 (principal) ==

== ENCOUNTER → 2021-09-30 | Outpatient (CLI) | payer OTHER ==
[~2021-09-30] MED LIST changes: +METH-1164; -METH1TAB40; +OMEP40CA4; +OMEP40CA4 PO; -OMEP40CA97; -OMEP40CA97 PO
[2021-09-30 14:09] LABS: BASO % 0.5 % (0.0-1.0); EOS # 0.2 10^3/uL (0.0-0.5); EOS % 2.5 % (0.0-3.0); HEMATOCRIT 47.1 % (36.0-47.0); HEMOGLOBIN 15.6 g/dl (12.0-15.5); LYMPH # 3.3 10^3/uL (1.5-5.0); LYMPH % 42.3 % (24.0-44.0); MEAN CORPUSCULAR HEMOGLOBIN 29.9 pg (27.0-33.0); MEAN CORPUSCULAR HGB CONC 33.1 g/dl (32.0-36.5); MEAN CORPUSCULAR VOLUME 90.4 fl (80.0-96.0); MONO # 0.6 10^3/uL (0.0-0.8); MONO % 7.7 % (2.0-8.0); NEUTROPHILS # 3.6 10^3/uL (1.5-8.5); NEUTROPHILS % 46.7 % (36.0-66.0); PLATELET COUNT, AUTOMATED 197 10^3/uL (150-450); RED BLOOD COUNT 5.21 10^6/uL (4.00-5.40); WHITE BLOOD COUNT 7.7 10^3/uL (4.0-10.0)
[2021-09-30 14:46] LABS: C REACTIVE PROTEIN QUANTITATIV 1.23 MG/DL (0.00-0.30); RHEUMATOID FACTOR QUANT < 10.0 IU/ML (<15.0); TOTAL PROTEIN 7.1 GM/DL (6.4-8.2); URIC ACID 5.2 MG/DL (2.6-6.0)
[2021-09-30 15:08] LABS: ERYTHROCYTE SEDIMENTATION RATE 6 mm/hr (0-30)
== END ==
LOC: M PLALAB 09:56
PROVIDERS: ATTEND Orthopaedic Surgery
DX: M17.11 Unilateral primary osteoarthritis, right knee (principal)

== ENCOUNTER → 2021-12-30 | Outpatient (CLI) | payer OTHER | LOC: M WHC 10:07 | PROVIDERS: ATTEND Nurse Practitioner Adult Health | DX: Z12.31 Encounter for screening mammogram for malignant neoplasm of breast (principal) ==

== ENCOUNTER → 2022-02-07 | Outpatient (REF) | payer OTHER ==
[2022-02-07 12:42] LABS: APPEARANCE, URINE CLEAR (CLEAR); BACTERIA, URINE AUTO NEGATIVE (NEGATIVE); BILIRUBIN, URINE AUTO NEGATIVE (NEGATIVE); BLOOD, URINE BLOOD NEGATIVE (NEGATIVE); COLOR, URINE YELLOW (YELLOW); GLUCOSE, URINE (UA) AUTO NEGATIVE (NEGATIVE); KETONE, URINE AUTO NEGATIVE (NEGATIVE); LEUKOCYTE ESTERASE, URINE AUTO NEGATIVE (NEGATIVE); MUCUS, URINE SMALL (NEGATIVE); NITRITE, URINE AUTO NEGATIVE (NEGATIVE); PROTEIN, URINE AUTO NEGATIVE (NEGATIVE); RBC, URINE AUTO 0 /HPF (0-3); SPECIFIC GRAVITY URINE AUTO 1.016 (1.002-1.035); SQUAMOUS EPITHELIAL CELL UR AU 0 /HPF (0-6); UROBILINOGEN, URINE AUTO 0.2 mg/dL (0.0-2.0); WBC, URINE AUTO 1 /HPF (0-3)
[2022-02-07 13:10] LABS: C REACTIVE PROTEIN QUANTITATIV 0.48 MG/DL (0.00-0.30); CREATININE,RANDOM URINE 69.6 MG/DL; MAGNESIUM LEVEL 2.4 MG/DL (1.8-2.4); PHOSPHORUS LEVEL 3.4 MG/DL (2.5-4.9); TOTAL PROTEIN,RANDOM URINE 12.3 MG/DL (0.0-12.0)
[2022-02-07 13:25] LABS: TOTAL 25(OH) VITAMIN D 19.3 NG/ML (30.0-100.0)
== END ==
LOC: M SFHCRHEU 10:21
PROVIDERS: ATTEND Internal Medicine
DX: R76.8 Other specified abnormal immunological findings in serum (principal)

== ENCOUNTER → 2022-02-11 | Outpatient (CLI) | payer OTHER | LOC: M WUC 10:39 | PROVIDERS: ATTEND Internal Medicine | DX: R79.82 Elevated C-reactive protein (CRP) (principal) ==

== ENCOUNTER → 2022-04-14 | Outpatient (CLI) | payer OTHER | LOC: M PLALAB 12:29 → M PLAIMG 12:29 | PROVIDERS: ATTEND Internal Medicine | DX: M17.10 Unilateral primary osteoarthritis, unspecified knee (principal) ==

== ENCOUNTER → 2022-06-24 | Outpatient (CLI) | payer OTHER | LOC: M PLARAD 13:35 | PROVIDERS: ATTEND Internal Medicine | DX: M23.92 Unspecified internal derangement of left knee (principal) ==

== ENCOUNTER → 2022-08-09 | Outpatient (CLI) | payer OTHER ==
[2022-08-09 14:27] LABS: HEMOGLOBIN A1c 5.5 % (4.0-6.0)
[2022-08-09 14:35] LABS: FOLATE 13.86 NG/ML (>5.4); RHEUMATOID FACTOR QUANT 6.3 IU/ML (<14); TOTAL 25(OH) VITAMIN D 24.5 NG/ML (20.0-100.0); TOTAL PROTEIN 6.5 GM/DL (6.4-8.2)
== END ==
LOC: M PLALAB 11:23
PROVIDERS: ATTEND Psychiatry & Neurology Neurology
DX: E11.9 Type 2 diabetes mellitus without complications (principal)

== ENCOUNTER → 2022-11-07 | Outpatient (CLI) | payer OTHER | LOC: M RAD 08:57 | PROVIDERS: ATTEND Otolaryngology | DX: J32.9 Chronic sinusitis, unspecified (principal) ==

== ENCOUNTER → 2023-01-27 | Outpatient (CLI) | payer OTHER ==
[2023-01-27 13:27] LABS: C REACTIVE PROTEIN QUANTITATIV 1.3 MG/DL (<1.0); MAGNESIUM LEVEL 1.9 MG/DL (1.8-2.4)
[2023-01-27 13:29] LABS: BASO # 0.1 10^3/uL (0.0-0.2); BASO % 0.6 % (0.0-1.0); EOS # 0.2 10^3/uL (0.0-0.5); EOS % 2.1 % (0.0-3.0); HEMATOCRIT 48.4 % (36.0-47.0); HEMOGLOBIN 16.2 g/dl (12.0-15.5); LYMPH # 4.3 10^3/uL (1.5-5.0); LYMPH % 40.9 % (24.0-44.0); MEAN CORPUSCULAR HEMOGLOBIN 29.8 pg (27.0-33.0); MEAN CORPUSCULAR HGB CONC 33.5 g/dl (32.0-36.5); MEAN CORPUSCULAR VOLUME 89.1 fl (80.0-96.0); MONO # 0.7 10^3/uL (0.0-0.8); MONO % 6.3 % (2.0-8.0); NEUTROPHILS # 5.2 10^3/uL (1.5-8.5); NEUTROPHILS % 49.7 % (36.0-66.0); PLATELET COUNT, AUTOMATED 202 10^3/uL (150-450); RED BLOOD COUNT 5.43 10^6/uL (4.00-5.40); WHITE BLOOD COUNT 10.4 10^3/uL (4.0-10.0)
[2023-01-27 13:31] LABS: TOTAL 25(OH) VITAMIN D 30.1 NG/ML (20.0-100.0)
== END ==
LOC: M PLALAB 09:32
PROVIDERS: ATTEND Internal Medicine
DX: E55.9 Vitamin D deficiency, unspecified (principal)

== ENCOUNTER → 2023-03-06 | Outpatient (CLI) | payer OTHER | LOC: M PLAIMG 13:07 | PROVIDERS: ATTEND Nurse Practitioner Adult Health | DX: R05.9 Cough, unspecified (principal) ==

== ENCOUNTER → 2023-06-29 | Outpatient (CLI) | payer OTHER ==
[~2023-06-29] MED LIST changes: +CELE0.09; -CELE1CAP9
== END ==
LOC: M RAD 09:05
PROVIDERS: ATTEND Nurse Practitioner Family
DX: Z87.891 Personal history of nicotine dependence (principal)

== ENCOUNTER → 2023-07-27 | Outpatient (CLI) | payer OTHER | LOC: M WHC 09:41 | PROVIDERS: ATTEND Internal Medicine | DX: Z12.31 Encounter for screening mammogram for malignant neoplasm of breast (principal) ==

== ENCOUNTER → 2023-09-04 | Outpatient (CLI) | payer OTHER ==
[2023-09-04 09:31] LABS: HEMATOCRIT 45.7 % (36.0-47.0); HEMOGLOBIN 15.2 g/dl (12.0-15.5); MEAN CORPUSCULAR HEMOGLOBIN 29.5 pg (27.0-33.0); MEAN CORPUSCULAR HGB CONC 33.3 g/dl (32.0-36.5); MEAN CORPUSCULAR VOLUME 88.6 fl (80.0-96.0); PLATELET COUNT, AUTOMATED 223 10^3/uL (150-450); RED BLOOD COUNT 5.16 10^6/uL (4.00-5.40); WHITE BLOOD COUNT 9.4 10^3/uL (4.0-10.0)
[2023-09-04 09:44] LABS: INR 0.99; PROTHROMBIN TIME 12.8 SECONDS (12.5-14.5)
[2023-09-04 09:50] LABS: ALBUMIN 3.4 G/DL (3.2-5.2); ALKALINE PHOSPHATASE 60 U/L (46-116); ALT/SGPT 56 U/L (7.0-40); AST/SGOT 25 U/L (<34); BILIRUBIN,TOTAL 0.2 MG/DL (0.3-1.2); BLOOD UREA NITROGEN 12 MG/DL (9-23); CALCIUM LEVEL 9.2 MG/DL (8.5-10.1); CARBON DIOXIDE LEVEL 28 MMOL/L (20-31); CHLORIDE LEVEL 109 MMOL/L (98-107); CREATININE FOR GFR 0.56 MG/DL (0.55-1.30); GLOMERULAR FILTRATION RATE > 60.0 (>51); GLUCOSE, FASTING 98 MG/DL (60-100); POTASSIUM SERUM 4.1 MMOL/L (3.5-5.1); SODIUM LEVEL 144 MMOL/L (136-145); TOTAL PROTEIN 6.3 G/DL (5.7-8.2)
[2023-09-04 09:54] LABS: ERYTHROCYTE SEDIMENTATION RATE 12 mm/hr (0-30)
== END ==
LOC: M RAD 08:07
PROVIDERS: ATTEND Orthopaedic Surgery
DX: Z01.818 Encounter for other preprocedural examination (principal)

== ENCOUNTER → 2024-02-26 | Outpatient (REF) | LOC: M LAB 15:37 | PROVIDERS: ATTEND Nurse Practitioner Adult Health | DX: Z00.00 Encounter for general adult medical examination without abnormal findings (principal) ==

== ENCOUNTER → 2024-06-12 | Outpatient (CLI) | payer OTHER ==
[~2024-06-12] MED LIST changes: +ISOVUE-300 61% 100ML VIAL As Ordered ONE; +LIDOCAINE 1% MDV 20ML VIAL As Ordered ONE; +TRIAMCINOLONE ACETONIDE SUSP 40MG/ML 1ML VIAL As Ordered ONE
== END ==
LOC: M RAD 14:44
PROVIDERS: ATTEND Physician Assistant
DX: M19.072 Primary osteoarthritis, left ankle and foot (principal)
CPT/HCPCS: 27648; 77002; J3301; Q9967

== ENCOUNTER → 2024-08-26 | Outpatient (CLI) | payer OTHER ==
[~2024-08-26] MED LIST changes: -ISOVUE-300 61% 100ML VIAL As Ordered ONE; -LIDOCAINE 1% MDV 20ML VIAL As Ordered ONE; -TRIAMCINOLONE ACETONIDE SUSP 40MG/ML 1ML VIAL As Ordered ONE
== END ==
LOC: M RAD 14:50
PROVIDERS: ATTEND Nurse Practitioner Family
DX: F17.210 Nicotine dependence, cigarettes, uncomplicated (principal)

== ENCOUNTER → 2024-12-09 | Day surgery (SDC) | payer OTHER ==
[~2024-12-09] VITALS: Ht 160 cm; Wt 84.5 kg
[~2024-12-09] MED LIST changes: +GABA-1490 PO; +LIDOCAINE 2% 100MG/5ML SDV (FOR ANES.) As Ordered ONE; +PROZ20CA11 PO; +SEMA1PEN2 SQ; +propofoL 200 MG/20 ML VIAL As Ordered ONE
[2024-12-09 13:42] VITALS: TEMP 96.2
[2024-12-09 14:05] VITALS: BP 140/82; O2SAT 93
== END | disposition home or self-care (01) ==
LOC: M OPP 12:20
PROVIDERS: ATTEND Surgery
DX: K63.5 Polyp of colon (principal); Z86.0100 Personal history of colon polyps, unspecified; Z79.85 Long-term (current) use of injectable non-insulin antidiabetic drugs; Z79.899 Other long term (current) drug therapy; F17.210 Nicotine dependence, cigarettes, uncomplicated